=== PATIENT | male | born 1955 | race African-American/Black ===

== ENCOUNTER 2018-02-19 21:49 | Emergency (ER) | payer OTHER ==
[~2018-02-19] VITALS: Ht 188 cm; Wt 95.0 kg
[2018-02-19 21:57] VITALS: BP 196/99; PULSE 77; RESP 17; TEMP 98
[2018-02-19] MEDS ORDERED: DIPHTH/TETANUS/ACEL PERTUSSIS (BOOSTER) 0.5 ML VIAL/PFS IM ONE (22:00)
[2018-02-19] MEDS ORDERED: ONDANSETRON HCL 4 MG/2 ML VIAL IV PUSH ONE (22:00)
[2018-02-19] MEDS ORDERED: SODIUM CHLOR 0.9% 1000 ML INJ 1,000 ML IV SCH (22:00)
[2018-02-19] MEDS ORDERED: SODIUM CHLORIDE 0.9% FLUSH 10 ML FLUSH IVF PRN (22:00)
[2018-02-19] MEDS ORDERED: MORPHINE SULFATE 4 MG/ML INJ IV PUSH ONE (22:00)
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
[2018-02-19 22:09] LABS: BASOPHIL # 0.1 TH/MM3 (0-0.2); EOSINOPHIL # 0.3 TH/MM3 (0-0.4); EOSINOPHIL % 5.4 % (0.0-4.0); HEMATOCRIT 42.6 % (39.0-51.0); HEMOGLOBIN 14.3 GM/DL (13.0-17.0); LYMPH % 50.2 % (9.0-44.0); LYMPHOCYTE # 3.1 TH/MM3 (1.0-4.8); MEAN CELL VOLUME 84.9 FL (80.0-100.0); MEAN CORPUSCULAR HEMOGLOBIN 28.6 PG (27.0-34.0); MEAN CORPUSCULAR HGB CONC 33.6 % (32.0-36.0); MEAN PLATELET VOLUME 9.5 FL (7.0-11.0); MONO % 10.3 % (0.0-8.0); MONOCYTE # 0.6 TH/MM3 (0-0.9); NEUT % 33.1 % (16.0-70.0); PLATELET COUNT 171 TH/MM3 (150-450); RED BLOOD COUNT 5.02 MIL/MM3 (4.50-5.90); RED CELL DISTRIBUTION WIDTH 13.8 % (11.6-17.2); WHITE BLOOD COUNT 6.1 TH/MM3 (4.0-11.0)
[2018-02-19 22:22] LABS: PROTHROMBIN TIME - PATIENT 10.3 SEC (9.8-11.6)
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
[2018-02-19 22:32] LABS: BICARBONATE 29.3 MEQ/L (21.0-32.0); CALCIUM 8.5 MG/DL (8.5-10.1); CREATININE 1.33 MG/DL (0.60-1.30)
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
[2018-02-19] MEDS ORDERED: IBUP1TAB5 PO (23:44)
[2018-02-19] MEDS ORDERED: CYCL10TA PO (23:44)
== END 2018-02-20 07:59 | disposition home or self-care (01) ==
LOC: NEPC 21:49
DX: M54.2 Cervicalgia (principal); M79.601 Pain in right arm; M79.604 Pain in right leg; S39.012A Strain of muscle, fascia and tendon of lower back, initial encounter; J32.0 Chronic maxillary sinusitis; R51 Headache; I10 Essential (primary) hypertension; V43.92XA Unspecified car occupant injured in collision with other type car in traffic accident, initial encounter; Z23 Encounter for immunization
CPT/HCPCS: 70450; 71045; 72125; 73060; 73552; 80048; 85025; 85610; 85730; 90471; 90715; 96374; 96375; 99285; J2270; J2405; J7030

== ENCOUNTER 2018-04-09 00:33 | Emergency (ER) | payer OTHER ==
[~2018-04-09 00:33] MED LIST: CYCL10TA PO; IBUP1TAB5 PO
[2018-04-09 00:51] VITALS: BP 169/95; PULSE 70; RESP 18; TEMP 98.5; O2SAT 98
--- NOTE | 2018-04-09 02:01 | PD ---
HPI Chief Complaint: ENT Complaint Time Seen by Provider: 01:55 Travel History International Travel<30 days: No Contact w/Intl Traveler<30days: No Traveled to known affect area: No History of Present Illness HPI 62-year-old black male presents emergency department requesting evaluation of possible mold exposure. He states that he is been staying in a house which was noted to have mold. He noticed during the day he has congestion, and sore throat which has been worse over the past week. He denies any fever chills. No ear pain, shortness of breath, wheezing, nausea, vomiting or diarrhea. PFSH Past Medical History Narrative Medical Hypertension Diminished Hearing: No Hypertension: Yes Tetanus Vaccination: < 5 Years Past Surgical History Surgical History: No Previous Surgery Social History Alcohol Use: No Tobacco Use: No Substance Use: No Allergies-Medications (Allergen,Severity, Reaction): Coded Allergies: No Known Allergies (Unverified , 04/09/18) Reported Meds & Prescriptions Reported Meds & Active Scripts Active Claritin (Loratadine) 10 Mg Cap 10 Mg PO DAILY Nasonex Nasal [place] (Mometasone Furoate) 50 Mcg/Act Naspr 2 [place] EACH NARE DAILY Flexeril (Cyclobenzaprine HCl) 10 Mg Tab 10 Mg PO TID 5 Days Ibuprofen 400 Mg Tab 400 Mg PO Q6H PRN Review of Systems Except as stated in HPI: all other systems reviewed are Neg Physical Exam Narrative GENERAL: Well-developed, well-nourished in no acute distress. Nontoxic appearing. HEAD: Normocephalic, atraumatic. EYES: Pupils equal round and reactive. Extraocular motions intact. No scleral icterus. No injection or drainage. ENT: TMs clear without erythema. The external auditory canals clear. Nose: clear . Posterior pharynx is mildly erythematous and moist. No tonsillar edema or exudate. Uvula midline. Airway patent. NECK: Trachea midline.Supple, nontender, moves head freely. No central bony tenderness or spasm. CARDIOVASCULAR: Regular rate and rhythm without murmurs, gallops, or rubs. RESPIRATORY: Clear to auscultation. Breath sounds equal bilaterally. No wheezes , rales, or rhonchi. GASTROINTESTINAL: Abdomen soft, non-tender, nondistended. No hepato-splenomegaly , or palpable masses. No guarding. EXTREMITIES: No clubbing, cyanosis, or edema. No joint tenderness, effusion, or edema noted. BACK: Nontender without deformity or crepitance. No flank tenderness. Data Data Last Documented VS Vital Signs Date Time Temp Pulse Resp B/P (MAP) Pulse Ox O2 Delivery O2 Flow Rate FiO2 04/09/18 00:51 98.5 70 18 169/95 (119) 98 Orders Orders Group A Rapid Strep Screen (04/09/18 01:58) Strep Culture (Group A) (04/09/18 02:04) Ed Discharge Order (04/09/18 03:24) MDM Medical Decision Making Medical Screen Exam Complete: Yes Emergency Medical Condition: Yes Medical Record Reviewed: Yes Interpretation(s) Rapid strep: Negative Differential Diagnosis Differential diagnosis: URI, strep throat, allergic rhinitis, sinusitis Narrative Course Will obtain a rapid strep. The rapid strep is negative. I suspect this is more allergic rhinitis. Diagnosis Primary Impression: Allergic rhinitis Patient Instructions: General Instructions Additional Instructions: Rest. Medications as directed. Get a home dehumidifier. Return the air conditioning temperature down. Follow-up with a medical doctor in 1 week. Return to ER if any problems. Med/Other Pt SpecificInfo: Prescription(s) given Scripts Loratadine (Claritin) 10 Mg Cap 10 MG PO DAILY for Allergy Management, #30 CAP 0 Refills Prov: Lisa Coyne MD 04/09/18 Mometasone Nasal [place] (Nasonex Nasal [place]) 50 Mcg/Act Naspr 2 SPRAY EACH NARE DAILY for Allergy Management, #1 BOTTLE 0 Refills Prov: Lisa Coyne MD 04/09/18 Disposition: 01 DISCHARGE HOME Condition: Stable Marc Rod Apr 09, 2018 02:01
[2018-04-09] MEDS ORDERED: MOME17I EACH NARE (03:24)
[2018-04-09] MEDS ORDERED: CLAR10CA3 PO (03:24)
== END 2018-04-09 03:35 | disposition home or self-care (01) ==
LOC: NEPD 00:33
DX: J30.9 Allergic rhinitis, unspecified (principal); R07.0 Pain in throat; I10 Essential (primary) hypertension
CPT/HCPCS: 87081; 87880; 99283

== ENCOUNTER 2018-10-07 12:27 | Inpatient (IN) ==
[~2018-10-07 12:27] MED LIST changes: -CYCL10TA PO; -IBUP1TAB5 PO; +Iohexol 350 MG/ML 100 ML Vial (for Cath Lab) IVCONTRAST ONE
[2018-10-07] MEDS ORDERED: Aspirin 325 MG Tablet PO ONE (13:20)
[2018-10-07 13:40] LABS: Baso % (Auto) 0.7 % (0.0-2.0); Eos # (Auto) 0.2 th/mm3 (0.0-0.4); Eos % (Auto) 3.4 % (0.0-4.0); Hematocrit 44.2 % (39.0-51.0); Hemoglobin 15.1 gm/dL (13.0-17.0); Lymph # (Auto) 1.8 th/mm3 (1.0-4.8); Lymph % (Auto) 31.4 % (9.0-44.0); Mean Corpuscular HGB Conc 34.3 % (32.0-36.0); Mean Corpuscular Volume 87.4 fL (80.0-100.0); Mean Platelet Volume 9.9 fL (7.0-11.0); Mono # (Auto) 0.4 th/mm3 (0.0-0.9); Mono % (Auto) 6.5 % (0.0-8.0); Neut # (Auto) 3.4 th/mm3 (1.8-7.7); Platelet Count 144 th/mm3 (150-450); Red Blood Count 5.05 mil/mm3 (4.50-5.90); Red Cell Distribution Width 14.1 % (11.6-17.2); White Blood Count 5.9 th/mm3 (4.0-11.0)
[2018-10-07 13:55] LABS: Activated Partial Thrombo Time 28.2 sec (23.4-31.7); INR 1.1 Ratio; Prothrombin Time 11.5 sec (9.8-11.6)
[2018-10-07 14:01] LABS: Alkaline Phosphatase 102 U/L (45-117); Creatine Kinase 321 U/L (39-308); Total Protein 7.4 g/dL (6.4-8.2)
[2018-10-07 14:06] LABS: Alanine Aminotransferase 29 U/L (12-78); Albumin 3.6 g/dL (3.4-5.0); Anion Gap 6 meq/L (5-15); Aspartate Aminotransferase 24 U/L (15-37); Blood Urea Nitrogen 14 mg/dL (7-18); Calcium 8.2 mg/dL (8.5-10.1); Carbon Dioxide 28.1 meq/L (21.0-32.0); Chloride 108 meq/L (98-107); Glomerular Filtration Rate 70 mL/min (>89); Glucose,Random 112 mg/dL (74-106); Potassium 3.7 meq/L (3.5-5.1); Sodium 142 meq/L (136-145)
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
[2018-10-07 14:13] LABS: CKMB Percent 0.7 % (0.0-4.0); Creatine Kinase MB 2.4 ng/mL (0.5-3.6)
--- NOTE | 2018-10-07 14:17 | ED ---
HPI General Chief Complaint: Chest Pain Stated Complaint: Medical/Doc Sent Time Seen by Provider: 10/07/18 13:06 Source: patient Mode of arrival: ambulatory Limitations: no limitations History of Present Illness HPI narrative: Mr Torrez is a 63 year old male who presents to the ED for evaluation of chest pain and an abnormal ECG. The patient states that he went to [facility] yesterday for chest pain and saw Caitlin Lomeli PA-C who told him his ECG was abnormal and she wanted him to be seen by cardiology. He was sent to cardiology this morning, where they did another ECG and sent him here to the ED. The patient does not know what either abnormal ECG showed. He states that he has left sided sharp chest pain that started several months ago but has increased in intensity recently. He now has SOB with exertion that resolves at rest, but the chest pain remains at rest. He describes the chest pain as a 4-5/10 today but was a 6-7/10 yesterday. He denies radiation to the arm, back, or jaw. He also complains of occasional lower abdominal pain that he attributes to certain foods he eats and he thinks is unrelated. He denies nausea , vomiting, CALDERÓN, lightheadedness, indigestion, changes in vision, syncope, or changes in urination. His PMH is significant for HTN. The patient quit smoking tobacco 33 years ago, and denies alcohol or drug use. Per patient he does not know the name of the apprentice jockey that he saw but states that he did not see the apprentice jockey but the nurse. Related Data Home Medications Medication Instructions Recorded Confirmed amlodipine 5 mg PO DAILY 10/07/18 10/07/18 Allergies Allergy/AdvReac Type Severity Reaction Status Date / Time No Known Allergies Allergy Unverified 10/07/18 12:44 Review of Systems ROS: all other systems reviewed are negative PMFSH Social History Social History Substance History: No History of Abuse Smoking Status: Never smoker How Often Do You Have a Drink Containing Alcohol: Never Recent Travel in [facility] within the Last 8 Weeks: No Recent Out of Country Travel within the Last 8 Weeks: No Immunization History Tetanus Immunization: Unsure Exam Narrative Exam Narrative: GENERAL: Patient is a well developed well nourished male in [facility]. SKIN: Warm and dry. HEAD: Atraumatic. Normocephalic. EYES: Pupils equal and round and reactive to light. No scleral icterus. No injection or drainage. ENT: No nasal bleeding or discharge. Mucous membranes pink and moist. NECK: Trachea midline. No JVD. CARDIOVASCULAR: Regular rate and rhythm on auscultation. Occasional PVCs on the monitor during the exam. No murmurs rubs or gallops. RESPIRATORY: No accessory muscle use. Clear to auscultation. Breath sounds equal bilaterally. GASTROINTESTINAL: Abdomen soft, non-tender, nondistended. Hepatic and splenic margins not palpable. MUSCULOSKELETAL: Extremities without clubbing, cyanosis, or edema. No obvious deformities. Full ROM of the upper and lower extremities bilaterally. 2+ pulses in the upper and lower extremities bilaterally. NEUROLOGICAL: Awake and alert. No obvious cranial nerve deficits. Motor grossly within normal limits. Five out of 5 muscle strength in the arms and legs. Normal speech. PSYCHIATRIC: Appropriate mood and affect; insight and judgment normal. Course Initial Documented Vital Signs Temperature 98.0 F 10/07/18 12:32 Pulse Rate 87 10/07/18 12:32 Respiratory Rate 16 10/07/18 12:32 Blood Pressure 173/66 H 10/07/18 12:32 Pulse Oximetry 98 10/07/18 12:32 Last Documented Vital Signs Temperature 98.8 F 10/08/18 04:00 Pulse Rate 76 10/08/18 06:00 Respiratory Rate 16 10/08/18 04:00 Blood Pressure 141/85 H 10/08/18 04:00 Pulse Oximetry 98 10/08/18 04:00 Medical Decision Making MONA Attestation MONA supervised visit: Yes Attestation: I, Dr. Garcia, have reviewed the advance practice practitioner's documentation and am in agreement, met with the patient face to face, made the diagnosis, and the medical decision making was done by me. *My assessment and Findings: This patient was sent to us from a apprentice jockey office because of EKG changes. He will be going to the [facility]. The patient reports no complaints at this time. See Jose Delaney note for a more detailed H&P, final diagnosis and disposition MDM Narrative Medical decision making narrative: 63-year-old male who presents to the ED for evaluation of abnormal EKG and chest pain. Patient was properly examined and was found to have signs and symptoms of unclear etiology with likely concerning for cardiac. patient reports he was not brought here with no documentation from the apprentice jockey. Per patient he does not know what the findings were. Per patient he does not know the name of the apprentice jockey and he does seem to state that he was not actually seen medical his brother or his nurse. At this time labs and imaging were done. Labs and imaging were essentially unremarkable. Patient was given aspirin nitroglycerin with minimal relief. Patient was given morphine as well. I got a call from Dr. Patel who apparently is wagon driver for Dr. Campos who is the [employer] who apparently evaluated the patient. Per Dr. Patel he is going to do a heart cath today as apparently there were some significant changes in the EKG. Per Dr. Patel he does not no other changes where as he is has not seen this. But he is planning to do the heart cath today. He wanted me to admit to medicine. No heparin at this time. Case discussed with Dr. Arroyo who agrees admission to his service. My attending Dr. lozano was made aware of all findings and agrees with plan. Patient was made aware of this and agrees with plan as well. Medical Screen Exam Complete: Yes Emergency Medical Condition: Yes Differential Diagnosis Differential Diagnosis: chest pain vs atypical chest pain vs unstable angina vs SVT vs NSTEMI Medical Records Medical records reviewed: Yes I reviewed the patient's medical records. Lab Data Lab results reviewed: Yes I reviewed the patient's lab results. Result diagrams: 10/07/18 13:25 10/07/18 13:25 Lab Results 10/07/18 10/07/18 10/07/18 Range/Units 13:25 13:25 13:25 WBC 5.9 (4.0-11.0) th/mm3 RBC 5.05 (4.50-5.90) mil/mm3 Hgb 15.1 (13.0-17.0) gm/dL Hct 44.2 (39.0-51.0) % MCV 87.4 (80.0-100.0) fL MCH 30.0 (27.0-34.0) pg MCHC 34.3 (32.0-36.0) % RDW 14.1 (11.6-17.2) % Plt Count 144 L (150-450) th/mm3 MPV 9.9 (7.0-11.0) fL Neut % (Auto) 58.0 (16.0-70.0) % Lymph % (Auto) 31.4 (9.0-44.0) % Cherry % (Auto) 6.5 (0.0-8.0) % Eos % (Auto) 3.4 (0.0-4.0) % Baso % (Auto) 0.7 (0.0-2.0) % Neut # (Auto) 3.4 (1.8-7.7) th/mm3 Lymph # (Auto) 1.8 (1.0-4.8) th/mm3 Cherry # (Auto) 0.4 (0.0-0.9) th/mm3 Eos # (Auto) 0.2 (0.0-0.4) th/mm3 Baso # (Auto) 0.0 (0.0-0.2) th/mm3 WBC Differential . Differential Comment Auto diff final PT 11.5 (9.8-11.6) sec INR 1.1 Ratio APTT 28.2 (23.4-31.7) sec Sodium 142 (136-145) meq/L Potassium 3.7 (3.5-5.1) meq/L Chloride 108 H (98-107) meq/L Carbon Dioxide 28.1 (21.0-32.0) meq/L Anion Gap 6 (5-15) meq/L BUN 14 (7-18) mg/dL Creatinine 1.27 (0.60-1.30) mg/dL Estimated GFR 70 L (>89) mL/min Random Glucose 112 H (74-106) mg/dL Calcium 8.2 L (8.5-10.1) mg/dL Total Bilirubin 0.6 (0.2-1.0) mg/dL AST 24 (15-37) U/L ALT 29 (12-78) U/L Alkaline Phosphatase 102 (45-117) U/L Total Creatine Kinase 321 H (39-308) U/L CK-MB (CK-2) 2.4 (0.5-3.6) ng/mL CK-MB (CK-2) % 0.7 (0.0-4.0) % Troponin I Less than 0.02 L (0.02-0.05) ng/mL Total Protein 7.4 (6.4-8.2) g/dL Albumin 3.6 (3.4-5.0) g/dL Imaging Data Attestation: I personally reviewed and interpreted this imaging study as follows : Radiologist's impression: Chest CT 10/07/18 00:00 CONCLUSION: 1. Atelectasis in the dependent portions of the lung bases. 2. The study is otherwise unremarkable. Chest X-Ray 10/07/18 13:20 CONCLUSION: No acute cardiac pulmonary disease. ECG Data EKG Prior to Arrival: No Attestation: I personally reviewed and interpreted this ECG as follows: (EKG shows a sinus rhythm with a rate of 71. He has inverted T waves in lead III. He also has inverted T waves in V1 through V4.) Interpretation: EKG here shows sinus rhythm with no sign of acute ischemia and arrhythmia. Read by me and attending. Patient is some T wave abnormalities more significant on the V2 V3 area. Discharge Plan Discharge Disposition Patient Disposition: ED Admit(ED Internal Use Only) Discharge Order Discharge Orders: Cardiology Clear for Discharge (Routine); Ordered 10/07/18 Ordered By: Doron Patel ED Use Only Admit Order (Routine); Ordered 10/07/18 Ordered By: Edgar Medeiros Discharge Details Diagnosis: Angina pectoris, unstable Physicians Team ED Provider: Tamy Garcia ED Midlevel Provider: Edgar Medeiros Primary Care Provider: Romero Stone Attending Provider: Maurice Vigil Other Providers: Doron Patel Status ED Status: Left Department Discharge Information Discharge Date/Time: 10/07/18 15:33
[2018-10-07] MEDS ORDERED: Acetaminophen 325 MG Tablet PO PRN (15:01)
--- NOTE | 2018-10-07 15:07 | P.HPIM ---
History of Present Illness Primary Care Physician: Romero Stone DO Chief Complaint: Exertional chest pain History of Present Illness: Mr Torrez is a 63 y/o male with HTN and hyperlipidemia who presented to the ED at [facility] for evaluation of chest pain and an abnormal EKG. The patient states that he has been having issues with intermittent left sided exertional chest pain for the last few weeks. The chest pain initially started several months ago but has increased in intensity recently. He now has SOB with exertion that resolves at rest. He hasn't been able to run for the last few weeks due to this pain and associated SOB which occurs when he runs and stops once he stops running. It is described as a squeezing type pain. He denies radiation to the arm, back, or jaw. Denies any associated diaphoresis, nausea/vomiting or palpitations. He went to [facility] yesterday with these complaints and was seen by the PA who told him his EKG was abnormal and she wanted him to be seen by cardiology. The outpt EKG was interpreted as sinus bradycardia with rate of 58, possible LA enlargement and marked T-wave abnormality, consider anterior ischemia. He was sent to cardiology this morning, and he reports that they sent him here to the ED for evaluation with cardiac catheterization. His EKG in the ED has noted T-wave inversion in the precordial leads. Cardiology has been consulted from the ED and the pt is planned for [facility]. Past Medical Hx: HTN Hyperlipidemia Hx of tobacco use Past Surgical Hx: Sinus surgery Family Hx: Noncontributory Social Hx: Remote hx of tobacco use, smoked 1 pack per week for about 15 years. Quit smoking about 25-30 years ago Denies any alcohol or illicit drug use Diagnosis (1) Angina pectoris, unstable: (2) HTN (hypertension): Inpatient Certification Inpatient Certification: I certify that the inpatient services were ordered in accordance with Medicare regulations governing the order. This includes certification that hospital inpatient services are reasonable and necessary and in the case of services not specified as inpatient-only under 42 CFR 419.22(n), that they are appropriately provided as inpatient services in accordance to with the 2-midnight benchmark under 43 CFR 412.3(e) Estimated Total Length of Stay (Days): 2 Plans for Post Hospital Care: Home Medications and Allergies Allergies Allergy/AdvReac Type Severity Reaction Status Date / Time No Known Allergies Allergy Unverified 10/07/18 12:44 Home Medications Medication Instructions Recorded Confirmed Type amlodipine 5 mg PO DAILY 10/07/18 10/07/18 History Active Medications: Active Medications Acetaminophen (Tylenol) 650 mg PO Q4H PRN PRN Reason: Temp > 100.4 Al Hydroxide/Mg Hydroxide (Milk Of Laila Morrison) 30 ml PO Q12H PRN PRN Reason: Mild Constipation Sodium Chloride (Ns Inj) 1,000 mls @ 100 mls/hr IV.CONT .Q10H QUE Ondansetron HCl (Zofran Inj) 4 mg IV.PUSH Q6H PRN PRN Reason: NAUSEA OR VOMITING Senna/Docusate Sodium (Saadia-Colace) 1 tab PO BID QUE Sodium Chloride (Ns Flush) 2 ml IV.FLUSH UNSCH PRN PRN Reason: FLUSH AFTER USING IV ACCESS Sodium Chloride (Ns Flush) 2 ml IV.FLUSH BID QUE Sodium Chloride (Ns Flush) 2 ml IV.FLUSH PRN PRN PRN Reason: FLUSH AFTER USING IV ACCESS Physical Exam Vital signs: Last Vital Signs Temp 98.0 F 10/07/18 12:32 Pulse 79 10/07/18 12:45 Resp 18 10/07/18 12:45 BP 135/71 10/07/18 12:45 Pulse Ox 95 10/07/18 12:45 Narrative: GENERAL: NAD, AAOx3 SKIN: Warm and dry. HEENT: Atraumatic. Normocephalic. Pupils equal and round. No scleral icterus. No injection or drainage. No nasal bleeding or discharge. Mucous membranes pink and moist. NECK: Trachea midline. No JVD. CARDIO: Regular rate and rhythm. RESP: No accessory muscle use. Clear to auscultation. Breath sounds equal bilaterally. ABD: +BS, soft, non-tender, nondistended. Hepatic and splenic margins not palpable. EXT: Extremities without clubbing, cyanosis, or edema. No obvious deformities. NEURO: Awake and alert. No obvious cranial nerve deficits. Motor grossly within normal limits. Five out of 5 muscle strength in the arms and legs. Normal speech. PSYCH: Appropriate mood and affect; insight and judgment normal. Results Labs CBC & Chem 7: 10/07/18 13:25 10/07/18 13:25 Imaging Chest X-Ray 10/07/18 13:20 CONCLUSION: No acute cardiac pulmonary disease. Caprini VTE Risk Assessment Caprini VTE Risk Assessment: Moderate/High Risk (score >= 2) Caprini Risk Assessment Model: Point Value = 1 Point Value = 2 Point Value = 3 Point Value = 5 Age 41-60 Minor surgery BMI > 25 kg/m2 Swollen legs Varicose veins or History of unexplained or recurrent spontaneous Oral contraceptives or hormone replacement Sepsis (< 1 month) Serious lung disease, including pneumonia (< 1 month) Abnormal pulmonary function Acute myocardial infarction Congestive heart failure (< 1 month) History of inflammatory bowel disease Medical patient at bed rest Age 61-74 Arthroscopic surgery Major open surgery (> 45 min) Laparoscopic surgery (> 45 min) Malignancy Confined to bed (> 72 hours) Immobilizing plaster cast Central venous access Age >= 75 History of VTE Family history of VTE Factor V Leiden Prothrombin [id number] Lupus anticoagulant Anticardiolipin antibodies Elevated serum homocysteine Heparin-induced thrombocytopenia Other congenital or acquired thrombophilia Stroke (< 1 month) Elective arthroplasty Hip, pelvis, or leg fracture Acute spinal cord injury (< 1 month) Prophylaxis Regimen: Total Risk Factor Score Risk Level Prophylaxis Regimen 0-1 Low Early ambulation 2 Moderate Order ONE of the following: *Sequential Compression Device (SCD) *Heparin 5000 units SQ BID 3-4 Higher Order ONE of the following medications: *Heparin 5000 units SQ TID *Enoxaparin/Lovenox 40 mg SQ daily (WT < 150 kg, CrCl > 30 mL/min) *Enoxaparin/Lovenox 30 mg SQ daily (WT < 150 kg, CrCl > 10-29 mL/min) *Enoxaparin/Lovenox 30 mg SQ BID (WT < 150 kg, CrCl > 30 mL/min) AND/OR *Sequential Compression Device (SCD) 5 or more Highest Order ONE of the following medications: *Heparin 5000 units SQ TID (Preferred with Epidurals) *Enoxaparin/Lovenox 40 mg SQ daily (WT < 150 kg, CrCl > 30 mL/min) *Enoxaparin/Lovenox 30 mg SQ daily (WT < 150 kg, CrCl > 10-29 mL/min) *Enoxaparin/Lovenox 30 mg SQ BID (WT < 150 kg, CrCl > 30 mL/min) AND *Sequential Compression Device (SCD) Assessment and Plan Assessment (1) Angina pectoris, unstable: Code(s): I20.0 - Unstable angina Status: Acute (2) HTN (hypertension): Code(s): I10 - Essential (primary) hypertension Status: Chronic Plan Exertional chest pain Abnormal EKG - Pt is a 63 y/o male with HTN and hyperlipidemia who presented to the ED at [facility] for evaluation of chest pain and an abnormal EKG. The patient states that he has been having issues with intermittent left sided exertional chest pain for the last few weeks. The chest pain initially started several months ago but has increased in intensity recently. He now has SOB with exertion that resolves at rest. He hasn't been able to run for the last few weeks due to this pain and associated SOB which occurs when he runs and stops once he stops running. He went to [facility] yesterday with these complaints and was seen by the PA who told him his EKG was abnormal and she wanted him to be seen by cardiology. The outpt EKG was interpreted as sinus bradycardia with rate of 58, possible LA enlargement and marked T-wave abnormality, consider anterior ischemia. He was sent to cardiology this morning, and he reports that they sent him here to the ED for evaluation with cardiac catheterization. - His EKG in the ED has noted T-wave inversion in the precordial leads. - Cardiology has been consulted from the ED and the pt is planned for [facility]. - He was given ASA 325mg and Nitro SL in the ED. He is not currently having any chest pain. - Keep pt NPO - Give IVF - Telemetry - Cont. home meds - ASA - Morphine PRN - Nitro PRN - Supportive care - Further recommendations based on the results of the above. ADDENDUM: - Pts LHC was negative, but pt concerned about the recurrent exertional chest tightness and SOB. - We will check Noncontrasted Chest CT to ensure no structural lung abnormality. Unable to have CTA at this time due to risk of kidney injury from all the contrast. - Check bedside PFTs - PT evaluation in AM and have the pt walk briskly to see if the symptoms can be reproduced to evaluate for a possible arrhythmias as a source of the symptoms - Pt will have Holter placed prior to discharge as well. Attending Attestation Patient examined. Assessment and plan formulated with Bria Gonzalez PA-C. I agree with the above. concern for exertional angina. abn ekg C today.
[2018-10-07] MEDS: Sod Chloride 0.9% Inj 1,000 ML IV.CONT SCH (15:30)
[2018-10-07] MEDS ORDERED: Morphine Sulfate Inj 2 MG/ML Vial IV.PUSH PRN (15:43)
--- NOTE | 2018-10-07 15:46 | P.CONCA ---
History of Present Illness Service: Cardiology Consult date: 10/07/18 Reason for Consult: Chest pain Primary Care Provider: Romero Stone DO Chief Complaint: Exertional chest pain History of Present Illness: This is a 63-year-old male with past medical history of hypertension hyperlipidemia who presents now to the emergency department upon referral from the outpatient setting secondary to chest pain and abnormal EKG. Patient previously been seen in the outpatient setting at the [facility] and was referred to cardiology for progressive symptoms. Electrocardiogram showed dynamic T wave abnormality and given ongoing symptoms he was referred to the emergency department. Initial cardiac biomarkers are unremarkable. Review of Systems All other systems reviewed negative except as stated in HPI PMFSH - History History Provided By: Patient - Tobacco History Smoking Status: Never smoker - Alcohol History How Often Do You Have a Drink Containing Alcohol: Never - Substance Use History Substance History: No History of Abuse - Travel History Recent Travel in the [facility] Within the Last 8 Weeks: No Recent Travel Out of the Country Within the Last 8 Weeks: No - Immunization History Tetanus Immunization: Unsure Medications and Allergies Active Medications: Active Medications Acetaminophen (Tylenol) 650 mg PO Q4H PRN PRN Reason: Temp > 100.4 Al Hydroxide/Mg Hydroxide (Milk Of Magnbalaji Liq) 30 ml PO Q12H PRN PRN Reason: Mild Constipation Amlodipine Besylate (Norvasc) 5 mg PO DAILY QUE Sodium Chloride (Ns Inj) 1,000 mls @ 100 mls/hr IV.CONT .Q10H QUE Ondansetron HCl (Zofran Inj) 4 mg IV.PUSH Q6H PRN PRN Reason: NAUSEA OR VOMITING Senna/Docusate Sodium (Saadia-Colace) 1 tab PO BID QUE Sodium Chloride (Ns Flush) 2 ml IV.FLUSH UNSCH PRN PRN Reason: FLUSH AFTER USING IV ACCESS Sodium Chloride (Ns Flush) 2 ml IV.FLUSH BID QUE Sodium Chloride (Ns Flush) 2 ml IV.FLUSH PRN PRN PRN Reason: FLUSH AFTER USING IV ACCESS Allergies Allergy/AdvReac Type Severity Reaction Status Date / Time No Known Allergies Allergy Unverified 10/07/18 12:44 Home Medications Medication Instructions Recorded Confirmed Type amlodipine 5 mg PO DAILY 10/07/18 10/07/18 History Exam Vital signs: Vital Signs 10/07/18 12:32 10/07/18 12:45 10/07/18 13:20 Temperature 98.0 F Pulse Rate 87 79 70 Respiratory Rate 16 18 Blood Pressure 173/66 H 135/71 Pulse Oximetry 98 95 Intake & Output 10/06/18 10/07/18 10/07/18 18:59 06:59 18:59 Weight 96.162 kg - Constitutional no acute distress - Routine HEENT Exam Head: Present: normocephalic Eye: Present: EOMI, PERRL ENT: Present: mucous membranes moist - Routine Neck Exam Absent: JVD - Routine Respiratory Exam Present: CTA bilaterally - Routine Cardiovascular Exam Present: RRR, murmur - Routine Abdominal Exam Present: soft, normoactive bowel sounds - Routine Extremities Exam Absent: edema - Routine Neurological Exam Present: oriented X3, CN II-XII intact. Absent: sensory deficit, motor deficit Results 10/07/18 13:25 10/07/18 13:25 Cardiac Enzymes 10/07/18 Range/Units 13:25 AST 24 (15-37) U/L CK-MB (CK-2) 2.4 (0.5-3.6) ng/mL Troponin I Less than 0.02 L (0.02-0.05) ng/mL Coagulation 10/07/18 Range/Units 13:25 PT 11.5 (9.8-11.6) sec APTT 28.2 (23.4-31.7) sec CBC 10/07/18 Range/Units 13:25 WBC 5.9 (4.0-11.0) th/mm3 RBC 5.05 (4.50-5.90) mil/mm3 Hgb 15.1 (13.0-17.0) gm/dL Hct 44.2 (39.0-51.0) % Plt Count 144 L (150-450) th/mm3 Neut # (Auto) 3.4 (1.8-7.7) th/mm3 Lymph # (Auto) 1.8 (1.0-4.8) th/mm3 Mitchell # (Auto) 0.4 (0.0-0.9) th/mm3 Eos # (Auto) 0.2 (0.0-0.4) th/mm3 Baso # (Auto) 0.0 (0.0-0.2) th/mm3 Comprehensive Metabolic Panel 10/07/18 Range/Units 13:25 Sodium 142 (136-145) meq/L Potassium 3.7 (3.5-5.1) meq/L Chloride 108 H (98-107) meq/L Carbon Dioxide 28.1 (21.0-32.0) meq/L BUN 14 (7-18) mg/dL Creatinine 1.27 (0.60-1.30) mg/dL Calcium 8.2 L (8.5-10.1) mg/dL AST 24 (15-37) U/L ALT 29 (12-78) U/L Alkaline Phosphatase 102 (45-117) U/L Total Protein 7.4 (6.4-8.2) g/dL Albumin 3.6 (3.4-5.0) g/dL Intake and Output 10/07/18 10/07/18 10/07/18 06:59 14:59 22:59 Other: Weight 96.162 kg Patient Weight 10/08/18 06:59 Weight 96.162 kg - Imaging and Cardiology Imaging: Impressions Chest X-Ray 10/07/18 13:20 CONCLUSION: No acute cardiac pulmonary disease. Assessment and Plan - Plan Unstable angina Progressive exertional symptoms at rest lasting greater than 20 minutes. Abnormal electrocardiogram with ischemic changes. Cardiovascular risk factors. N.p.o. Cardiac catheterization today Cardiac telemetry monitoring Aspirin, statin, beta-khang. We will hold off anticoagulation since his on his way to the catheterization lab now.
[2018-10-07] MEDS ORDERED: fentaNYL Citrate Inj 100 MCG/2 ML Ampul ONE (15:47)
[2018-10-07] MEDS ORDERED: Heparin/NS PF Inj 1,000 ML ONE (15:47)
[2018-10-07] MEDS ORDERED: Heparin 10,000 UNITS/10 ML Vial (for IV use) ONE (15:47)
--- NOTE | 2018-10-07 16:28 | CATHPROC ---
[facility] HIS Report Study Information Study Number Admission Scheduled Start Study Start [id number] Oct 07 2018 12:27PM 10/07/2018 Oct 07 2018 3:37PM [place] [facility] Cardiac Catheterization Admit Source Facility Department Emergency department [facility] Physician and Clinical Staff Initial Doron Dickerson Home Economist Consumer Service Cecilio Archuleta,RN Recorder Kylee Rocha ,RT(R) Scrub Bhavani Grewal,SUSTAINMENT LOGISTICS ANALYST TECH2 Procedures Performed Procedure Location (Site) Vessel Name Angiogram LV LV Ventricle Coronary Angiograms LCA Left Coronary Coronary Angiograms RCA Right Coronary L Heart Cath Equipment Time Rate Clerk Description Size Mfg Part Number Used/Scraped TRANSDUCER, TRUWAVE [id number] 15:38 SALVADOR JEREZ * Used W/STOCKCOCK *[id number] 534-518T *[id number] 534-523T *[id number] 534-552S *[id number] 15:38 Digg BLANKET,WARM AIR CCL * Used *[id number] 15:38 Digg PACK, CCL CUSTOM * Used *[id number] 15:38 Digg SUPPORT, ARTERIAL ADULT [id number] *[id number] Used BAND, RADIAL COMPRESSION TR [id number] 16:28 Mobifusion 24CM Used SHORT 24 *[id number] SHEATH, FR6 RADIAL PRELUDE 15:38 Mobifusion FR 6 [id number] Used EASE 11CM [id number] 15:38 Mobifusion WIRE, EXCHANGE 260CM 3MMJ 260CM Used *[id number] 15:38 NAMIC MANIFOLD, 4 PORT * Used *[id number] 16:16 NAMIC TUBING, HIGH PRESSURE 48" 48" Used *[id number] 15:38 NYCOMED OMNIPAQUE, 350 MG, 150ML 150ML [id number] Used History: Current Medications Medication Dosage/Unit Route Frequency Last Date/Time Taken ASA History: Allergies Allergy Reaction No Known Allergies History: Symptoms/Diagnosis Selection Items Chest pain History: Stress Tests Stress or Imaging Studies Performed No History: Other Current Smoker No Labs Hgb (g/dl) Hct (%) WBC (l/cumm) Platelets (thousands) 11.60-17.00 35.00-51.00 4.00-11.00 150.00-450.00 15.1 44.1 5.9 144 Glucose (mg/dl) BUN (mg/dl) Creatinine (mg/dl) BUN:Creatinine (1:x) 74.00-106.00 7.00-18.00 0.50-1.30 10.00-20.00 112 14 1.2 11.7 Na (meq/l) K (meq/l) 136.00-145.00 3.50-5.10 142 3.7 INR (PTT:PT) 0.90-1.10 1.1 Troponin I (ng/ml) 0.02-0.05 0.02 Medication Medication Total Dose (Bolus/Oral) Medication Total Dosage/Unit 1% XYLOCAINE 5 mL FENTANYL 50 mcg HEPARIN 5000 units RADIAL COCKTAIL 5 mL (Bolus) VERSED 2 mg Medications (Bolus/Oral) Medication Time Given Dosage/Unit Administered By Reason VERSED 10/07/2018 4:02:31 PM 2 mg Geremias, Cecilio 2 mg VERSED given in lab by Cecilio Archuleta RN via Peripheral IV. Ordered by Doron Patel. FENTANYL 10/07/2018 4:03:37 PM 50 mcg Geremias, Cecilio 50 mcg FENTANYL given in lab by Cecilio Archuleta RN via Peripheral IV. Ordered by Doron Patel. 1% XYLOCAINE 10/07/2018 4:04:46 PM 5 mL Doron Patel 5 mL 1% XYLOCAINE given in lab by Doron Patel in Right Radial via Subcutaneous. Ordered by Doron Patel. Ntg 200mcg Verapamil 2.5mg Heparin RADIAL COCKTAIL 10/07/2018 4:07:29 PM 5 mL (Bolus) Doron Patel 3000U 5 mL (Bolus) RADIAL COCKTAIL given in lab by Doron Patel via Radial. Using [Solution Name]. Ordere d by Doron Patel. Reason: Ntg 200mcg HEPARIN 10/07/2018 4:07:36 PM 5000 units Geremias, Cecilio 5000 units HEPARIN given in lab by Cecilio Archuleta RN via Peripheral IV. Ordered by Doron Patel. Medication (Drip) Medication Time Given Dosage/Unit Concentration/Unit Diluent (ml) Solution IV Solutions 10/07/2018 3:36:55 PM 50 mL (IV) NaCl .9 Patient arrived on IV Solutions via Peripheral IV. Pump/Drip Flow using NaCl .9. Initial Case Assessment Cardiovascular HR NIBP Chest Pain 72 160/95 0 Edema Present Skin color Skin None Normal Warm Dry Circulatory - Right Pulses Dorsalis Pedis Femoral Radial 3 3 3 Scale (0,1,2,3,4,d) Circulatory - Left Pulses Dorsalis Pedis Femoral Radial 3 3 Scale (0,1,2,3,4,d) Neurological State Oriented to time-place- Alert Moves all extremities person Respiration - General Respiration Rate SpO2 (%) (B/min) 76 98 Final Case Assessment Cardiovascular HR NIBP Chest Pain 72 134/86 0 Edema Present Skin color Skin None Normal Warm Dry Circulatory - Right Pulses Dorsalis Pedis Femoral Radial 3 3 3 Scale (0,1,2,3,4,d) Circulatory - Left Pulses Dorsalis Pedis Femoral Radial 3 3 Scale (0,1,2,3,4,d) Neurological State Oriented to time-place- Alert Moves all extremities person Respiration - General Respiration Rate SpO2 (%) (B/min) 76 98 Chronological Log Time Study Chronological Log 15:36:43 Patient arrived via Bed. 15:36:43 Patient Name, D.O.B, / Armband Verified By R.N. 15:36:44 Consent signed by the physician and the patient and verified by the [facility] staff. 15:36:45 Pre-op and post- op instructions given; patient acknowledges understanding of instructions. 15:36:48 Presedation assessment performed by [facility] RN. 15:36:48 Allens test performed on the right radial and ulnar artery. POSITIVE. 15:36:50 Immediate Presedation assesment performed by physician. 15:36:51 Patient has been NPO for Less than 6Hrs. 15:36:52 Skin Breakdown-none per patient 15:36:52 Patient Warmer Placed on the Table. 15:36:53 Yumiko Prominences Protected 15:36:55 A # 20 IV was noted in the Antecubital (right). Grade = 0 15:36:55 Patient arrived on IV Solutions via Peripheral IV. Pump/Drip Flow using NaCl .9. 15:36:56 History and physical on the chart or being dictated. Assessment: Initial Case, HR=72 BPM, BEGR=767/95 mmhg, Chest Pain=0, Edema=None, Color=Normal, Skin = Warm, Dry Right Pulses: Lowell Ped=3, Femoral=3, Radial=3 15:46:47 Left Pulses: Lowell Ped=3, Femoral=3 Neurological: State=Alert, Ox3, MORENO Respiration: Resp=76 B/min, SpO2=98 % Vitals capture started with the following parameters, Patient=Adult, Interval=5 min, Initial Pr nrqmgz=741 mmHg, 15:46:49 Deflation Rate=5 mmHg, Cuff placed on Left Arm 15:47:17 Right Radial and groin(s) prepped with 2% chlorhexidine, and draped after a 3 min. waiting time. 15:47:56 YHBT=090/95 mmhg, SpO2=97.0 % 15:52:35 HR=72 bpm, JHHK=795/88 mmhg, SpO2=97.0 %, Resp=14 B/min 15:55:18 Pressure channel 1 zeroed. 15:56:14 MD paged 15:57:00 MD responded 15:57:32 HR=73 bpm, DKYF=136/98 mmhg, SpO2=96.0 %, Resp=14 B/min, Pain=0, Sarah=10, Lopes=2 16:02:23 MD arrived. 16:02:31 2 mg VERSED given in lab by Cecilio Archuleta, RN via Peripheral IV. Ordered by Doron Patel. 16:02:37 HR=79 bpm, WNQE=219/80 mmhg, SpO2=98.0 %, Resp=16 B/min Time Out. Correct patient, correct procedure, correct physician, labs, allergies, and equipment verified with clinical laboratory director 16:02:47 team present. Fire risk assesment completed (see hard stop sheet for coding). Time Out Conc urred by and individual staff in procedure. 16:03:16 Reference ECG taken 16:03:37 50 mcg FENTANYL given in lab by Cecilio Archuleta, RN via Peripheral IV. Ordered by Mita Patel en. 16:04:45 Case Start 16:04:46 5 mL 1% XYLOCAINE given in lab by Doron Patel in Right Radial via Subcutaneous. Ordered by Doron Patel. 16:06:58 Access site was Right Radial Artery . A SHEATH, FR6 RADIAL PRELUDE EASE 11CM FR 6 was advanced into the Radial (right) using the Perc utaneous 16:07:04 technique. 5 mL (Bolus) RADIAL COCKTAIL given in lab by Doron Patel via Radial. Using [Solution Name]. Ordered by Jorge, 16:07:29 Doron. Reason: Ntg 200mcg 16:07:36 HR=71 bpm, CHSM=913/80 mmhg, SpO2=96.0 %, Resp=13 B/min 16:07:36 5000 units HEPARIN given in lab by Cecilio Archuleta, RN via Peripheral IV. Ordered by St magali Patel. A JR 5.0 INFINITI CATHETER FR 5 was advanced over a wire. OMNIPAQUE, 350 MG, 150ML 150ML was us ed for 16:07:43 injections. Recorded Pressure: Ao, HR=82, Condition=Condition 1 16:09:45 (Aorta) Ao 120/74/94 16:09:58 The RCA was injected and visualized at various angles. OMNIPAQUE, 350 MG, 150ML 150ML used . After removing the current catheter a JL 3.5 INFINITI CATHETER FR 5 was advanced over a WIRE, E XCHANGE 260CM 16:10:17 3MMJ 260CM. 16:12:31 HR=77 bpm, ELMW=992/75 mmhg, SpO2=92.0 %, Resp=12 B/min 16:12:42 The LCA was injected and visualized at various angles. OMNIPAQUE, 350 MG, 150ML 150ML used . After removing the current catheter a PIGTAIL ANG. INFINITI CATHETER FR 5 was advanced over a W ABIOLA, EXCHANGE 16:15:50 260CM 3MMJ 260CM. Recorded Pressure: LV, HR=88, Condition=Condition 1 16:16:33 (Left Ventricle) LV 134/2/8 16:17:30 HR=76 bpm, QNBZ=768/86 mmhg, SpO2=93.0 %, Resp=13 B/min, Pain=0, Sarah=10, Lopes=2 16:18:50 The LV was injected at 10 cc/sec for a total of 30. OMNIPAQUE, 350 MG, 150ML 150ML used. 16:19:13 Catheter was removed 16:19:19 Case End (Physician broke scrub) Assessment: Final Case, HR=72 BPM, OVOV=836/86 mmhg, Chest Pain=0, Edema=None, Color=Normal, Sk in = Warm, Dry Right Pulses: Lowell Ped=3, Femoral=3, Radial=3 16:19:26 Left Pulses: Lowell Ped=3, Femoral=3 Neurological: State=Alert, Ox3, MORENO Respiration: Resp=76 B/min, SpO2=98 % 16:19:40 Catheter(s) removed without difficulty Radial Compression Device Used. 13 mLs of air placed in BAND, RADIAL COMPRESSION TR SHORT 24 2 4CM. Affected 16:19:42 hand 96 % O2 saturation. 16:19:44 Sterile dressing applied to site 16:19:54 No case complications noted. 16:19:57 Cine recording checked. 16:19:58 Bedside Report will be given. 16:20:03 A Left Heart Cath was performed. 16:22:31 HR=72 bpm, LEED=542/82 mmhg, SpO2=94.0 %, Resp=12 B/min 16:27:32 HR=76 bpm, PGNM=189/80 mmhg, Resp=17 B/min 16:28:14 Patient moved to stretcher End Study - Contrast Media Used In Study Contrast Total Opened (mL) Total Used (mL) Total Wasted (mL) Omnipaque 75 75 0 End Study - Maximum Contrast Load Max Contrast Load (mL) 400.4 End Study - Radiation Exposure Fluoro Time (minutes) 1.3 End Study - Sheaths Sheaths Pulled By Sheath Hold Time (min) Bhavani Grewal End Study - Patient Disposition Complications Transferred To Interventional Outcome No [facility] Holding No attempt made
--- NOTE | 2018-10-07 16:29 | P.PCN ---
Date of procedure: 10/07/18 Pre-op diagnosis: Unstable angina Procedure: aerosol line operator: Ren Patel MD Procedures performed: 1. Fluoroscopy with interpretation 2. Coronary angiography 3. Left heart catheterization 4. Left ventriculogram Methods: Risks, benefits, and alternatives were discussed with the patient. Patient understood and consented to the procedure. Patient was brought into the cardiac catheterization lab and placed on the catheterization table. The patient's right wrist was prepped and draped in a sterile fashion. The right wrist was anesthetized with 1% lidocaine. Right wrist was cannulated and a 6 Peruvian 11 cm sheath was placed without difficulty. 200 mcg of intra-arterial nitroglycerin was administered and 5000 units of intravenous heparin. Left heart catheterization: Intraventricular hemodialysis of 134/2 mmHg Left ventriculography: Left ventricular systolic function 60% without regional wall motion abnormalities. No significant mitral regurgitation noted. Coronary angiography: The left main coronary artery was selectively engaged with a 5 Peruvian JL 3.5 Pan catheter. The right coronary circulation was selectively engaged with a 5 Peruvian JR 5 Pan catheter. 1. Left main coronary artery 2. Left anterior descending coronary artery 3. Left circumflex coronary artery 4. Right coronary is a dominant vessel giving rise to the posterior descending branch. The right coronary artery Conclusions: 1. Normal left ventricular systolic function left-sided filling pressures 2. Mild nonobstructive coronary disease Plan: Guideline directed medical therapy. Sheath removed and Hemoband applied. Monitor for postprocedural complications. Discharge planning
--- NOTE | 2018-10-07 17:05 | ECG ---
Date Performed: 10/07/2018 Time Performed: 13:47:07 PTAGE: 63 years EKG: Sinus rhythm MARKED T-WAVE ABNORMALITY, CONSIDER ANTERIOR ISCHEMIA ABNORMAL ECG NO PREVIOUS TRACING DOCTOR: Chapincito Lazaro Interpretating Date/Time 10/07/2018 17:02:50
--- NOTE | 2018-10-07 20:13 | CT ---
EXAM DATE: 10/07/2018 8:09 PM EST AGE/SEX: 63 years / Male INDICATIONS: Chest pain and palpitations. CLINICAL DATA: This is the patient's initial encounter. Patient reports that signs and symptoms have been present for 1 week and indicates a pain score of 5/10. MEDICAL/SURGICAL HISTORY: None. None. RADIATION DOSE: 13.47 CTDI (mGy) COMPARISON: [facility], CHEST 1V SINGLE AP, 10/07/2018. . TECHNIQUE: Multiple contiguous axial images were obtained through the chest without contrast. Image s were obtained in suspended respiration using multiple row detector helical technique. Using automa avtar exposure control and adjustment of the mA and/or kV according to patient size, radiation dose was kept as low as reasonably achievable to obtain optimal diagnostic quality images. DICOM format imag e data is available electronically for review and comparison. FINDINGS: Lungs: The lungs are symmetrically aerated. No infiltrates or nodular densities are seen. There is atelectasis in the dependent portions of the lung bases. Mediastinum: There is good visualization of the great vessels of the middle mediastinum. No evidenc e of mediastinal or hilar adenopathy/mass. Pleurae: No evidence of focal thickening or pleural effusion. Axillae: Unremarkable. Bony Structures: Unremarkable. Miscellaneous: The examination was extended to include the upper abdomen, and both adrenal glands ar e normal in size and configuration. CONCLUSION: 1. Atelectasis in the dependent portions of the lung bases. 2. The study is otherwise unremarkable. Electronically signed by: Viraj Vargas MD 10/07/2018 8:12 PM EST
[2018-10-07] MEDS: Senna/Docusate Sodium 8.6/50 MG Tablet PO SCH (20:50)
[2018-10-08] MEDS: Sod Chloride 0.9% Inj 1,000 ML IV.CONT SCH (01:23)
[2018-10-08 07:39] LABS: Baso # (Auto) 0.1 th/mm3 (0.0-0.2); Baso % (Auto) 1.6 % (0.0-2.0); Eos # (Auto) 0.3 th/mm3 (0.0-0.4); Eos % (Auto) 4.2 % (0.0-4.0); Hemoglobin 15.4 gm/dL (13.0-17.0); Lymph # (Auto) 1.8 th/mm3 (1.0-4.8); Lymph % (Auto) 30.1 % (9.0-44.0); Mean Corpuscular HGB Conc 33.6 % (32.0-36.0); Mean Corpuscular Hemoglobin 29.3 pg (27.0-34.0); Mean Corpuscular Volume 87.2 fL (80.0-100.0); Mean Platelet Volume 9.5 fL (7.0-11.0); Mono # (Auto) 0.6 th/mm3 (0.0-0.9); Mono % (Auto) 9.8 % (0.0-8.0); Neut # (Auto) 3.3 th/mm3 (1.8-7.7); Neut % (Auto) 54.3 % (16.0-70.0); Platelet Count 143 th/mm3 (150-450); Red Blood Count 5.28 mil/mm3 (4.50-5.90); Red Cell Distribution Width 13.5 % (11.6-17.2); White Blood Count 6.1 th/mm3 (4.0-11.0)
[2018-10-08 08:06] LABS: Anion Gap 8 meq/L (5-15); Blood Urea Nitrogen 14 mg/dL (7-18); Calcium 8.5 mg/dL (8.5-10.1); Carbon Dioxide 27.5 meq/L (21.0-32.0); Chloride 105 meq/L (98-107); Glomerular Filtration Rate 75 mL/min (>89); Glucose,Random 100 mg/dL (74-106); Sodium 140 meq/L (136-145)
[2018-10-08 08:10] LABS: Creatine Kinase 264 U/L (39-308)
[2018-10-08] MEDS: Senna/Docusate Sodium 8.6/50 MG Tablet PO SCH (08:18)
[2018-10-08 08:22] LABS: Creatine Kinase MB 1.8 ng/mL (0.5-3.6)
--- NOTE | 2018-10-08 08:54 | P.PNCA ---
Subjective Interval history: The patient feels well today. He denies any further chest pain or shortness of breath. He has been ambulated multiple times around the unit this morning with physical therapy with no reproduction of symptoms. No issues with right wrist access site. Medications and Allergies Active Medications: Active Medications Acetaminophen (Tylenol) 650 mg PO Q4H PRN PRN Reason: Temp > 100.4 Al Hydroxide/Mg Hydroxide (Milk Of Magnbalaji Liq) 30 ml PO Q12H PRN PRN Reason: Mild Constipation Amlodipine Besylate (Norvasc) 5 mg PO DAILY [facility] Last Admin: 10/08/18 08:19 Dose: 5 mg Aspirin (Ecotrin) 325 mg PO DAILY [facility] Last Admin: 10/08/18 08:18 Dose: 325 mg Sodium Chloride (Ns Inj) 1,000 mls @ 100 mls/hr IV.CONT .Q10H [facility] Last Admin: 10/08/18 01:23 Dose: 100 mls/hr Metoprolol Tartrate (Lopressor) 25 mg PO BID [facility] Morphine Sulfate (Morphine Inj) 2 mg IV.PUSH Q4H PRN PRN Reason: pain 2-10 Nitroglycerin (Nitrostat Sl) 0.4 mg SL Q5M PRN PRN Reason: CHEST PAIN Ondansetron HCl (Zofran Inj) 4 mg IV.PUSH Q6H PRN PRN Reason: NAUSEA OR VOMITING Senna/Docusate Sodium (Saadia-Colace) 1 tab PO BID [facility] Last Admin: 10/08/18 08:18 Dose: Not Given Sodium Chloride (Ns Flush) 2 ml IV.FLUSH BID [facility] Last Admin: 10/08/18 08:18 Dose: Not Given Sodium Chloride (Ns Flush) 2 ml IV.FLUSH UNSCH PRN PRN Reason: FLUSH AFTER USING IV ACCESS Allergies Allergy/AdvReac Type Severity Reaction Status Date / Time No Known Allergies Allergy Unverified 10/07/18 12:44 Home Medications Medication Instructions Recorded Confirmed Type amlodipine 5 mg PO DAILY 10/07/18 10/07/18 History Physical Exam Vital signs: Vital Signs 10/07/18 12:32 10/07/18 12:45 10/07/18 13:20 Temperature 98.0 F Pulse Rate 87 79 70 Respiratory Rate 16 18 Blood Pressure 173/66 H 135/71 Pulse Oximetry 98 95 10/07/18 17:10 10/07/18 21:00 10/07/18 22:00 Temperature 96.9 F L Pulse Rate 78 70 Respiratory Rate 16 Blood Pressure 156/85 H Pulse Oximetry 98 99 10/07/18 23:00 10/08/18 00:00 10/08/18 01:00 Temperature 97.9 F Pulse Rate 66 73 60 Respiratory Rate 16 Blood Pressure 130/67 Pulse Oximetry 99 10/08/18 02:00 10/08/18 03:00 10/08/18 04:00 Temperature 98.8 F Pulse Rate 66 56 L 65 Respiratory Rate 16 Blood Pressure 141/85 H Pulse Oximetry 98 10/08/18 05:00 10/08/18 06:00 Temperature Pulse Rate 64 76 Respiratory Rate Blood Pressure Pulse Oximetry Intake & Output 10/07/18 10/08/18 10/08/18 18:59 06:59 18:59 Intake Total 1480 / 1480 Balance 1480 / 1480 Weight 212 lb 211 lb 10.3 oz Intake: IV 1000 / 1000 NS Inj 1,000 ML @ 100 mls/hr IV 1000 / 1000 .CONT .Q10H [facility] Rx#:[id number] Oral 480 / 480 Other: # Voids 3 Date of Last Bowel Movement 10/07/18 10/07/18 Narrative: GENERAL: Well-developed well-nourished. In no acute distress. NECK: No carotid bruits. No JVD. CARDIOVASCULAR: Regular rate and rhythm. No murmur appreciated. RESPIRATORY: No accessory muscle use. Clear to auscultation. Breath sounds equal bilaterally. MUSCULOSKELETAL: No clubbing or cyanosis. No edema. Palpable radial and ulnar pulses on the right. NEUROLOGICAL: Awake and alert. Normal speech. Results 10/08/18 07:03 10/08/18 07:03 Cardiac Enzymes 10/07/18 10/08/18 Range/Units 13:25 07:03 AST 24 (15-37) U/L CK-MB (CK-2) 2.4 1.8 (0.5-3.6) ng/mL Troponin I Less than 0.02 L Less than 0.02 L (0.02-0.05) ng/mL Coagulation 10/07/18 Range/Units 13:25 PT 11.5 (9.8-11.6) sec APTT 28.2 (23.4-31.7) sec CBC 10/07/18 10/08/18 Range/Units 13:25 07:03 WBC 5.9 6.1 (4.0-11.0) th/mm3 RBC 5.05 5.28 (4.50-5.90) mil/mm3 Hgb 15.1 15.4 (13.0-17.0) gm/dL Hct 44.2 46.0 (39.0-51.0) % Plt Count 144 L 143 L (150-450) th/mm3 Neut # (Auto) 3.4 3.3 (1.8-7.7) th/mm3 Lymph # (Auto) 1.8 1.8 (1.0-4.8) th/mm3 Josephine # (Auto) 0.4 0.6 (0.0-0.9) th/mm3 Eos # (Auto) 0.2 0.3 (0.0-0.4) th/mm3 Baso # (Auto) 0.0 0.1 (0.0-0.2) th/mm3 Comprehensive Metabolic Panel 10/07/18 10/08/18 Range/Units 13:25 07:03 Sodium 142 140 (136-145) meq/L Potassium 3.7 4.0 (3.5-5.1) meq/L Chloride 108 H 105 (98-107) meq/L Carbon Dioxide 28.1 27.5 (21.0-32.0) meq/L BUN 14 14 (7-18) mg/dL Creatinine 1.27 1.20 (0.60-1.30) mg/dL Calcium 8.2 L 8.5 (8.5-10.1) mg/dL AST 24 (15-37) U/L ALT 29 (12-78) U/L Alkaline Phosphatase 102 (45-117) U/L Total Protein 7.4 (6.4-8.2) g/dL Albumin 3.6 (3.4-5.0) g/dL Intake and Output 10/07/18 10/08/18 10/08/18 22:59 06:59 14:59 Intake Total 1480 / 1480 Balance 1480 / 1480 Intake: IV 1000 / 1000 NS Inj 1,000 ML @ 100 mls/hr IV 1000 / 1000 .CONT .Q10H [facility] Rx#:[id number] Oral 480 / 480 Other: # Voids 3 Date of Last Bowel Movement 10/07/18 10/07/18 10/07/18 Weight 211 lb 10.3 oz - Imaging and Cardiology Imaging: Impressions Chest CT 10/07/18 00:00 CONCLUSION: 1. Atelectasis in the dependent portions of the lung bases. 2. The study is otherwise unremarkable. Chest X-Ray 10/07/18 13:20 CONCLUSION: No acute cardiac pulmonary disease. Assessment and Plan - Plan 63-year-old male who presented for symptoms of unstable angina with markedly abnormal EKG with anterior ischemic changes. Left heart cath 10/07/18 with mild nonobstructive CAD. 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 Medical management with amlodipine and metoprolol. Okay for DC today and outpatient follow-up with us. Discussed Condition With: Patient, hospitalist, Dr. Patel
[2018-10-08] MEDS ORDERED: Metoprolol Tartrate 25 MG Tablet PO SCH (09:00)
[2018-10-08] MEDS ORDERED: amLODIPine 5 MG Tablet PO SCH (09:00)
[2018-10-08 09:41] VITALS: RESP 18
--- NOTE | 2018-10-08 11:53 | P.PNIM ---
Subjective Interval history: ambulating. no cp or sob Physical Exam Vital signs: Last Vital Signs Temp 98.1 F 10/08/18 08:00 Pulse 94 H 10/08/18 10:00 Resp 18 10/08/18 08:00 BP 151/92 H 10/08/18 09:55 Pulse Ox 100 10/08/18 10:04 Narrative: heart reg lung cta abd s/nt ext no edema Results Labs CBC & Chem 7: 10/08/18 07:03 10/08/18 07:03 Assessment and Plan Assessment (1) Angina pectoris, unstable: Code(s): I20.0 - Unstable angina Status: Acute (2) HTN (hypertension): Code(s): I10 - Essential (primary) hypertension Status: Chronic Plan Exertional chest pain Abnormal EKG myocardial bridging. Pt had [facility] coronaries. 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 will go on bb/ccb/asa and f/u cardiology pft today CT chest some atelectasis. holter at fl. f/u cardiology office for result.
[2018-10-08 13:34] VITALS: BP 145/79; TEMP 98; O2SAT 96
[2018-10-08 13:37] VITALS: PULSE 72
--- NOTE | 2018-10-10 11:08 | HM ---
Date Performed: 10/08/2018 Time Performed: 12:29:00 HOOKUP DATE: 10/08/18 12:29:00 PM [facility] ANALYSIS START TIME: 10/08/2018 12:34:00 PM ANALYSIS END TIME: 10/09/2018 1:00:49 AM PATIENT AGE: 63 PATIENT HEIGHT PATIENT WEIGHT DRUG LIST PATIENT DIAGNOSIS: unstable angina TEST NARRATIVE: The patient's average heart rate was 79 BPM. No episodes of tachycardia wer e noted. No episodes of bradycardia were noted. No pauses exceeding 2.0 seconds were noted. 286 ventricular ectopics, which represented < 1% of the total beat count, were noted. The highest ve ntricular ectopic frequency occurred from 12:00 AM to 01:00 AM Fri. During this time 42 VE(s) occurr ed. Ventricular ectopics were observed as 284 isolated beat(s) and as 1 couplet(s). No runs were no avtar. 8 supraventricular ectopics, which represented < 1% of the total beat count, were noted. Th e highest supraventricular ectopic frequency occurred from 02:00 PM to 03:00 PM [facility]. During this kvng e 3 SVE(s) occurred. No episodes of ST depression (defined as -1.0 mm or more) were noted in [place] hilaria 1. No episodes of ST depression (defined as -1.0 mm or more) were noted in channel 2. No episod es of ST depression (defined as -1.0 mm or more) were noted in channel 3. TEST INTERPRETATION: Holter monitor demonstrates normal Sinus rhythm . There are changes in QRS morphology which appear to be intermittent bundle branch block. This may b e rate related but clinical correlation is required. Occasional rare PACs and PVCs was noted. No par oxysmal tachy or mt arrhythmias were seen. Signed by : Bernabe Muñoz
== END 2018-10-08 13:26 | disposition home or self-care (01) ==
LOC: NEPE 12:27 → NEDA 14:37 → HCIS 21:50
PROVIDERS: ADMIT Hospitalist; ATTEND Hospitalist